=== PATIENT | male | born 1950 | race Caucasian/White ===

== ENCOUNTER 2021-05-18 09:49 | Emergency (ER) | payer MEDICARE, BC, SELFPAY ==
[2021-05-18 09:53] VITALS: BP 141/90; PULSE 63; RESP 14; TEMP 35.2; O2SAT 99; BMI 27.3
--- NOTE | 2021-05-18 10:42 | US_ITS ---
STUDY: SCROTUM ULTRASOUND REASON FOR EXAM: Male, 70 years old. Testicular Pain TECHNIQUE: Ultrasound evaluation of the scrotum was performed with color Doppler and static guevara-scale imaging. COMPARISON: None. FINDINGS: RIGHT TESTICLE INTRATESTICULAR: There is a normal size of the right testicle. The right testicle measures 5.1 x 3.4 x 2 .2 cm. There is a heterogeneous echotexture. There is normal arterial and normal venous vascularity. There are small tunica cysts at the periphery. There is hypoechoic region with probable cystic dilatation of the rete testes. EXTRATESTICULAR: The epididymis is normal in size. The epididymis head measures 1.1 cm. There is normal vascularity of the epididymis. There is no demonstrated epididymal cystic structure. There is a small hydrocele. There is no demonstrated varicocele. There is no demonstrated extratesticular mass or cyst. LEFT TESTICLE INTRATESTICULAR: There is a normal size of the left testicle. The left testicle measures 4.7 x 3.4 x 2.6 cm. There is a heterogeneous echotexture. There is normal arterial and normal venous vascularity. There are hypoechoic regions with probable cystic dilatation of the rete testes EXTRATESTICULAR: The epididymis is normal in size. The epididymis head measures 1.1 cm. There is normal vascularity of the epididymis. There is no demonstrated epididymal cystic structure. There is a small hydrocele. There are prominent extratesticular veins consistent with a varicocele. There is no demonstrated extratesticular mass or cyst. US/Testicular with Arterial Flow IMPRESSION: Probable cystic dilatation of the rete testes. Small tunica cysts on the right. Small hydroceles. Electronically Signed: Aravind Landin MD at 13:13 EST , Service support ,
--- NOTE | 2021-05-18 10:46 | EX.ED.GUMALE ---
HPI History of Present Illness Chief Complaint: Male Pain/Injury Narrative Narrative: Patient presents with right testicular pain for the last week. It is intermittent. He states he seems to be okay in the morning, but by the end of the day he has pain. He denies any fevers or chills. No nausea or vomiting. No true swelling of the area. No dysuria, hematuria, or penile discharge. 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 He has sharp stabbing pain that radiates upward. The pain is in the testicle itself. No back pain. No other symptoms. PFSH PFS Medical History no medical history Home Medications NK 05/18/21 [History Last Taken Unknown] Allergy/AdvReac Type Severity Reaction Status Date / Time No Known Allergies Allergy Verified 05/18/21 09:52 Social History Smoking Status: Never smoker ROS ROS ED ROS Narrative Constitutional: No fever, no chills. HEENT: No sore throat. No neck pain. No loss of vision. No rhinorrhea. Cardiovascular: No chest pain. No palpitations. No pedal edema. Respiratory: No cough, no shortness of breath. Abdominal: No abdominal pain. No nausea. No vomiting. Genitourinary: No dysuria. No hematuria. Right testicular pain. Musculoskeletal: No myalgias. No arthralgias. Neurologic: No headaches. No dizziness. No lightheadedness. Skin: No rash. No change in color. Psychiatric: No depression. No anxiety. EXAM Physical Exam Narrative Exam Narrative: Afebrile. Vital signs noted. HEENT: Normocephalic. Atraumatic. PERRL, EOMI. Neck soft and supple. No point tenderness or step off. Cardiovascular: Regular rate and rhythm. No murmurs, rubs, or gallops appreciated. Respiratory: No tachypnea. Lungs clear to auscultation bilaterally. Gastrointestinal: Abdomen soft, nontender, with normoactive bowel sounds. No rebound or guarding. Neurological: Awake. Alert. Nonfocal, nonlateralizing. Skin: No rash. Normal color. No pallor. Musculoskeletal: No pedal edema. Full range of motion extremities. Genitourinary: Chaperoned examination reveals mild tenderness in the right epididymal area. No fluctuance. No palpated hernia. Normal lie of testicles. Const Vital Signs: 05/18/21 09:53 05/18/21 13:23 Temperature 95.3 F L Temperature Source Temporal Pulse Rate 63 57 L Respiratory Rate 14 18 Blood Pressure 141/90 H 129/79 H Blood Pressure Mean 107 95 Pulse Ox 99 98 Oxygen Delivery Method Room Air Room Air MDM MDM MDM Narrative Medical decision making narrative: Patient is having more pain in the testicle itself. He may have more of a hydrocele or varicocele. Urine was sent for analysis and ultrasound was obtained of the testicles. Urinalysis shows no evidence of infection. The ultrasound of the testicles shows probable cystic dilation of the rete testes. Small tunica cysts on the right. Small hydroceles. Clinically, I see no evidence of hernia, and he does not have any signs of obstruction, no problems with bowel movements. At this point in time, I feel he can be discharged safely home with follow-up to his primary care physician. However, he states he does not have 1 currently, he was also referred to urology. Disposition is discharged home in stable condition. Lab Data Attestation: I reviewed the patient's lab results. Labs: Laboratory Results - last 24 hr 05/18/21 10:20 Urine Color Yellow Urine Clarity Clear Urine pH 6.0 Ur Specific Gilbert 1.025 Urine Protein Negative Urine Glucose (UA) Normal Urine Ketones Negative Urine Occult Blood 25 H Urine Nitrite Negative Urine Bilirubin Negative Urine Urobilinogen Normal Ur Leukocyte Esterase Negative Urine RBC 0 SEEN Urine WBC 0 SEEN Ur Squamous Epith Cells 0 SEEN Urine Bacteria 0 SEEN Urine Mucus 0 SEEN Radiography Diagnostic Testing: Clinical Impression(s) from Imaging Studies Testicular Ultrasound 05/18/21 10:42 IMPRESSION: Probable cystic dilatation of the rete testes. Small tunica cysts on the right. Small hydroceles. Electronically Signed: Aravind Landin MD at 13:13 EST , Service support , Discharge Plan Triage Chief Complaint: Male Pain/Injury ED Provider: Sudarshan Reno Dx/Rx/DC Orders Clinical Impression: Pain in testicle Instructions: ED Testicular Pain, Unclear Cause Prescriptions: No Action NK RF: 0 Primary Care Provider: Terrance Garduno NP Referrals: Low Villagomez MD [STAFF PHYSICIAN] - 05/22/21 Terrance Garduno NP, EQUIPMENT SERVICE ASSOCIATE-C [Primary Care Provider] - Disposition Disposition: Home, Self Care
[2021-05-18 11:30] LABS: Bacteria 0 SEEN /hpf (None Seen); Mucous, Urine 0 SEEN /hpf (<or=2+); Red Blood Cells-Urine 0 SEEN /hpf (0-5); Squamous Epithelial Cells - UA 0 SEEN /hpf (0-5); White Blood Cells 0 SEEN /hpf (0-5)
[2021-05-18 11:36] LABS: Color, Urine Yellow (Yellow); Glucose, Dipstick Normal (Normal); Ketone-Dipstick Negative (Negative); Leukocyte Esterase-Dipstick Negative /ul (Negative); Nitrite-Dipstick Negative (Negative); Occult Blood-Urine 25 /ul (Negative); Protein-Dipstick Negative (Negative); Specific Gravity, Urine 1.025 (1.002-1.030); Urine Bilirubin Dipstick Negative (Negative); Urine Clarity Clear (Clear); Urine Urobilinogen Normal (Normal)
[2021-05-18 13:23] VITALS: BP 129/79; PULSE 57; RESP 18; O2SAT 98
== END 2021-05-18 14:11 | disposition home or self-care (01) ==
PROVIDERS: Emergency Provider Emergency Medicine; PCP Nurse Practitioner Family
DX: N50.811 Right testicular pain (principal); N43.3 Hydrocele, unspecified
CPT/HCPCS: 76870; 81001; 93976; 99284; A4216

== ENCOUNTER 2021-05-20 22:15 | Emergency (ER) | payer MEDICARE, BC, SELFPAY ==
[2021-05-20 22:16] VITALS: BP 137/79; PULSE 65; RESP 16; TEMP 36.4; O2SAT 97; BMI 26.2
--- NOTE | 2021-05-20 23:19 | EDS_ITS ---
HPI HPI - GI History of Present Illness Chief Complaint: Abd Pain Detail of Chief Complaint: Right groin pain Informant: patient Abdominal Pain/Flank Pain Onset: Days Context: Gradual Onset Timing: Intermittent Quality: Dull Current Severity: Mild Maximum Severity: Mild Relieved by: Nothing Nausea/Vomiting/Emesis GI Symptom: Negative for Nausea and Vomiting Diarrhea/Melena/Hematochezia GI Symptom: Negative for Diarrhea, Melena and Hematochezia Associated Symptoms Associated Symptoms: Negative for Dysuria, Frequency, Hematuria and Urgency Narrative Narrative: 70-year-old male no seen past medical history no significant surgeries. He says the last 5 to 6 days and intermittent right groin pain. Worse with lifting. He denies any dysuria or hematuria. No fever. No vomiting or diarrhea. He was seen in emergency room several days ago had a urinalysis and testicular ultrasound which were unremarkable. Prior similar symptoms: No Recent Illness/Hospitalization: No PFSH PFSH Medical History no medical history no medical history Home Medications NK 05/18/21 [History Last Taken Unknown] Allergy/AdvReac Type Severity Reaction Status Date / Time No Known Allergies Allergy Verified 05/20/21 22:16 Surgical History no surgical history no surgical history Social History Smoking Status: Never smoker ROS ROS ED ROS Narrative Denies recent illness. Review of Systems ROS Unobtainable: Denies due to encephalopathy Constitutional Constitutional ED: Denies fever(s) ENT ENT ED: Denies ear pain Cardiovascular Cardiovascular: Denies chest pain Respiratory/Chest Respiratory/Chest: Denies dyspnea Gastrointestinal Gastrointestinal: Denies abdominal pain Genitourinary Genitourinary ED: Denies dysuria Musculoskeletal Musculoskeletal: Denies myalgias Integumentary Denies rash Neurologic Neurologic: Denies headache(s) Psychiatric Psychiatric: Denies depression Endocrine Endocrinology: Denies polyuria Hematologic/Lymphatic Hematologic/Lymphatic: Denies easy bruising Allergic/Immunologic Allergic/Immunologic ED: Denies urticaria EXAM Physical Exam Narrative Exam Narrative: 70-year-old male no acute distress exam normal except right inguinal hernia. His scrotum and testicles are nontender without masses. There is no swelling. He has an obvious hernia on the right when he bears down or coughs. He may have a small 1 on the left also. Neither is strangulated or incarcerated. Const Vital Signs: 05/20/21 22:16 Temperature 97.5 F L Temperature Source Temporal Pulse Rate 65 Respiratory Rate 16 Blood Pressure 137/79 H Blood Pressure Mean 98 Pulse Ox 97 Positive well nourished and well developed; Negative for obese, cachectic, contractures or unkempt General Appearance ED: well developed and NAD; Negative for unkempt, cachectic, contractures or pallor Nutritional Appearance: Negative for cachectic or obese HEENT Reports moist mucous membranes normocephalic and atraumatic Eyes PERRL and EOMs intact bilaterally General Eye ED: Negative for pale conjunctiva or scleral icterus Neck no lymphadenopathy, supple and no JVD General: Negative for tenderness Resp normal respiratory effort and clear to auscultation bilaterally Auscultation: Negative for rales, rhonchi, wheezes or diminished lung sounds Cardio regular rate, regular rhythm, S1 normal heart sound, S2 normal heart sound and no murmurs GI non-tender, non-distended and no masses GI Narrative: Right inguinal hernia. Sliding. Not incarcerated or strangulated. He may also have a small on the left. Inspection: Negative for abdominal distention Auscultation: normoactive bowel sounds; Negative for hypoactive bowel sounds Palpation: soft; Negative for tender, guarding or rigid Back/Spine no CVA tenderness General Back: Negative for CVA tenderness Extremity full ROM General Extremety ED: Negative for edema or tenderness General Extremity: Negative for edema Neuro moves all extremities Sensorium / Orientation: alert, oriented to person, oriented to place and oriented to time; Negative for confused, lethargic or stuporous Motor Exam: strength 5/5 throughout Psych mental status grossly normal and thought process normal Appearance: Negative for unkempt Mood & Affect: Negative for depressed or tearful Skin no wounds General Skin Exam: Negative for jaundice or pallor Lesions: no lesions Rashes: no rashes MDM MDM MDM Narrative Medical decision making narrative: 70-year-old male with a right inguinal hernia. Will be referred to general surgery for follow-up. We discussed things such as strangulation, incarceration or bowel obstruction again any no symptoms he should return. Discharge Plan Triage Chief Complaint: Abd Pain ED Provider: Arvind Massey Dx/Rx/DC Orders Clinical Impression: Hernia, inguinal, right Instructions: ED Hernia (Adult) Prescriptions: No Action NK RF: 0 Primary Care Provider: Terrance Garduno NP Referrals: Richmond Dacosta MD [STAFF PHYSICIAN] - As soon as possible Johnny Goff MD [STAFF PHYSICIAN] - As soon as possible Terrance Garduno NP, FIRE EXTINGUISHER SPRINKLER INSPECTOR-C [Primary Care Provider] - Activity Restrictions/Additional Instructions: You have a right groin hernia. Follow-up with a general surgeon and they can evaluate you for having that surgically repaired. Return if severe pain, vomiting abdominal distention or you notice a larger lump that will not reduce. Disposition Disposition: Home, Self Care
[2021-05-20 23:36] VITALS: BP 136/82; PULSE 65; RESP 15; O2SAT 99
== END 2021-05-20 23:37 | disposition home or self-care (01) ==
LOC: ED 23:30
PROVIDERS: Emergency Provider Emergency Medicine; PCP Nurse Practitioner Family
DX: K40.90 Unilateral inguinal hernia, without obstruction or gangrene, not specified as recurrent (principal)
CPT/HCPCS: 99282

== ENCOUNTER 2021-06-07 06:04 | Day surgery (SDC) | payer MEDICARE, BC, SELFPAY ==
--- NOTE | 2021-06-05 16:14 | EKG12_ITS ---
Test Reason : PREOP Blood Pressure : / mmHG Vent. Rate : 062 BPM Atrial Rate : 062 BPM P-R Int : 232 ms QRS Dur : 152 ms QT Int : 428 ms P-R-T Axes : 040 -47 -12 degrees QTc Int : 434 ms Sinus rhythm with 1st degree A-V block Right bundle branch block Left anterior fascicular block Bifascicular block Abnormal ECG Confirmed by ZACHERY REVELES, VINCENT ([id number]), editor managing newspaper MENDEL RESENDIZ ([id number]) on 06/06/2021 10:03:41 AM Referred By: Richmond Dacosta Confirmed By:VINCENT BINGHAM MD
[2021-06-05 17:09] LABS: Hematocrit 41.6 % (40-54); Mean Corp Hgb Conc 33.7 g/dL (32-36); Mean Corpuscular Hgb 31.3 pg (27.0-32.0); Mean Corpuscular Volume 93.1 fL (80-94); Mean Platelet Vol. 8.4 fl (6.2-12.0); Platelet Count 276 K/mm3 (150-450); RBC Distribution Width CV 11.9 % (11.6-14.6); RBC Distribution Width SD 41.1 fl (35.1-43.9); Red Blood Count 4.47 M/mm3 (4.6-6.2); White Blood Count 8.4 K/mm3 (4.4-11.0)
[2021-06-07] VITALS (9 sets, daily range): BP systolic 110–141; BP diastolic 68–87; PULSE 58–71; RESP 16–18; TEMP 36.1–37.1; O2SAT 92–100; BMI 26.7
[2021-06-07] MEDS: Lactated Ringers 1,000 ML 15 ML IV (06:40)
--- NOTE | 2021-06-07 07:21 | PCM.HP.BLA ---
History and Physical Date of Admission: 06/07/21 Intake Vital Signs 05/25/21 14:17 Height 6 ft 3 in Weight: 218 lb BMI 27.2 BP 143/64 H Blood Pressure Location Rt brachial Position Sitting Respiration 16 Intake Visit Reasons: R ING HERNIA/SEEN IN ER Chief Complaint: right groin pain Photographic Process Worker Required: No Is patient in pain?: Yes (right groin) Allergies No Known Allergies Allergy (Verified 05/25/21 14:18) Medications glucosamine HCl 500 mg tablet 500 mg PO DAILY 05/25/21 [History Confirmed 05/25/21] vitamin E 200 unit capsule 200 unit PO DAILY 05/25/21 [History Confirmed 05/25/21] [facility] Medical History Hernia, inguinal, right Pain in testicle Surgical History (Updated 05/25/21 @ 14:17 by Katrin Hand) History of surgical removal of pilonidal cyst Family History (Updated 05/25/21 @ 14:17 by Katrin Hand) Father Diabetes CVA (cerebral vascular accident) Social History (Updated 05/25/21 @ 14:17 by Katrin Hand) Smoking Status: Never smoker alcohol intake: never HPI HPI HPI: NHI SYLVESTER, is a 70 M who presents to the office today for right groin pain. The patient reports that he has been having bulging and pain in the right groin for the past several weeks. He reports no nausea or vomiting. He has no symptoms of the opposite side. ROS General General: No weight change, appetite, fatigue, colon cancer, breast cancer or weakness HEENT HEENT: No difficulty swallowing, eye injury, eye surgery, swollen glands or hoarseness Endo Endocrine: No thyroid disease, diabetes mellitus, thyroid cancer, Hair loss, heat intolerance or cold intolerance Skin Skin: No rash or changing moles Breast Breast: No left breast lump, right breast lump, nipple discharge, breast pain, abnormal mammogram, abnormal US or breast enlargement Musc Musculoskeletal: No back problems, arthritis, rheumatoid arthritis, gout or joint pain Cardio Cardiovascular: No murmur, pacemaker, heart disease, atrial fibrillation, high blood pressure, heart attack, heart stent, palpitations, shortness of breat with exertion or chest pain Psych Psychiatric: No depression, anxiety or hearing voices Resp Respiratory: No shortness of breath, Yes sleep apnea, No cough, No COPD, No asthma, No emphysema and No wheezing Gastro Gastrointestinal: No abdominal pain, No nausea or vomiting, No diarrhea, No constipation, No blood in stool, No acid reflux, No hemorrhoids, No ulcers, No gallbladder problem and No black,tarry stools Nelson Hematologic: No blood thinners, No blood disorders, No bleeding, No anemia and No blood clots Neuro Neurologic: No system reviewed and no additional complaints, except as documented, No as per HPI, No abnormal gait, No abnormal hearing, No abnormal movements, No abnormal speech, No behavioral changes, No burning sensations, No confusion, No convulsions, No disequilibrium, No dizziness, No localized weakness, No frequent falls, No headache(s), No lack of coordination, No loss of vision, No memory loss, No numbness, No other visual disturbances, No radicular pain, No restless legs, No sensory deficit, No syncope, No tingling, No tremor(s), No weakness and No other Exam Const General: cooperative Orientation: alert and oriented x3 [facility] Head: normal to inspection Neck Neck: normal visual inspection and full ROM Chest Chest palpation & inspection: normal inspection of the chest Resp Effort & Inspection: normal respiratory effort Auscultation: clear to auscultation bilaterally Cardio Rate: regular rate Rhythm: regular rhythm GI Inspection: non-distended Palpation: soft, hernia indirect inguinal on the right and nontender Skin General: no rashes or lesions noted Neuro General: patient alert and patient oriented x3 Extrem General: full ROM Psych Appearance: grossly normal Mental Status: mental status grossly normal Assessment and Plan Assessment and Plan (1) Hernia, inguinal, right: Status: Acute Plan - Dr. Richmond Dacosta MD: The patient has a right inguinal hernia. I discussed robotic assisted laparoscopic right inguinal hernia repair with mesh. I discussed the procedure in detail all the patient's questions were answered. I discussed risks associated with the procedure including but not limited to bleeding, infection, injury to other organs such as bowel, spermatic cord, bladder. Patient understands all the risks and is willing to proceed. I discussed mesh placement as well. I also discussed repairing the contralateral side if necessary if there is a hernia present and he would like it repaired if it is present. Richmond Dacosta MD Pager: [facility] [address] [place] [address], [address] [place] [address] Office: I have re-examined the patient. There are no clinical changes since date of exam.
--- NOTE | 2021-06-07 07:30 | LIP_PTH ---
PATIENT: NHI SYLVESTER [place] [facility] [id number] AGE/SX: 70/M ROOM: RE06/07/[address]: Dr. Richmond Dacosta MD : 1950 BED: DIS: 06/07/2021 SPEC #: [id number] RECD: 06/07/21 10:53 STATUS: JOY REZay #: [id number] KWABENA: 06/07/21 07:[address]: Richmond Dacosta DEPT: SURGICAL PATHOLOGY RECD BY: Judy Khan ENTERED: 06/07/21 11:09 SP TYPE: LIPOMA OTHR DR: CELESTINA Smith Tissues: Soft tissues, NOS Procedures: Surgery Specimen Level III HEADER OPERATION: Lap robotic inguinal hernia with mesh PRE-OP DIAGNOSIS: Right inguinal hernia TISSUE SUBMITTED: Lipoma of right cord MICROSCOPIC DIAGNOSIS Lipoma of right cord: Mature adipose tissue, consistent with lipoma with reactive changes. SJ:kay 06/11/2021 MICROSCOPIC DESCRIPTION Slides are reviewed. GROSS DESCRIPTION Received in fixative is one container labeled with the patient's name and designated lipoma of right cord. The specimen consists of multiple irregular fragments of lovelace-yellow fatty tissue that in aggregate measure 7 x 6 x 1 cm. Serial sections do not reveal mass lesions. Medical Device sections are submitted in two cassettes. / AM:kay 06/07/21 TC:1 CPT: 92307
[2021-06-07] MEDS: Bupivacaine Mpf 0.5% 30 ML VIAL (08:32)
--- NOTE | 2021-06-07 08:47 | PCM.OPRPT ---
Problems Associated Problem List Diagnoses (1) Hernia, inguinal, right: Report of Operation Date of Procedure: 06/07/21 Pre-Operative Diagnosis: Right inguinal hernia Post-Operative Diagnosis: Same Surgery/Procedure Performed:: Robotic assisted laparoscopic right inguinal hernia repair with mesh Specimen's removed: Lipoma of the right cord Description of Procedure: Patient was brought back to the operating room and general anesthesia was induced. The abdomen was prepped and draped in usual sterile fashion. An incision was made superior to the umbilicus and deepened the fascia which was elevated and a Veress needle was placed into the abdomen. Drop test was performed. The abdomen was then insufflated 15 mmHg and the Veress needle was removed. Camera port was placed through this midline incision and the abdomen was inspected and there were no injuries from entry. Patient was placed in Trendelenburg position and the inguinal regions were inspected and there appeared to be only a right inguinal hernia. Under direct visualization a right lateral and left lateral 8 mm port were placed. The robot was then docked. Using scissors with electrocautery an incision was made in the peritoneum in the right lower quadrant and dissection was carried inferiorly until the hernia sac was identified. A lipoma and the hernia sac were reduced. The lipoma was removed. Next ProGrip mesh was trimmed and placed in the right inguinal region and unfolded over the hernia. There is good coverage. The peritoneum was then reapproximated over this defect using a running 3 OV lock suture. There was complete coverage of the mesh after closure of the peritoneum. Next the robot was undocked and the abdomen was a lot of desufflate. The scrotum was checked and contain both testicles. The incisions were injected with local anesthetic and closed with interrupted 4-0 Monocryl suture as well as Steri-Strips and bandages. Patient was awoken and taken to PACU in stable condition and tolerated the procedure well. Grafts/Implants Used: ProGrip mesh in the right inguinal region Admit VTE Documentation VTE Mechan Device Prophylaxis: SCD's
--- NOTE | 2021-06-07 08:49 | DCINST_ITS ---
Discharge Instructions Procedure Hernia Diet Discharge Diet: Light diet - advance as tolerated Activity Discharge Activity: May Not Drive (for 2-3 days or while taking narcotic pain meds.) and May Shower (with the bandage in place 1-2 days after surgery.) Lifting Restrictions: 20 pounds for 4 weeks. Additional Activity Instructions:: Climbing stairs is fine, walking is encouraged. Sitting in bed may be uncomfortable. Sitting up using your lateral muscles (sitting up sideways) is usually more comfortable. Do not drive, work heavy equipment of sign legal documents for 24 hours. If your hernia repair was an ingunial repair, you may have scrotal swelling, an ice pack and/or athletic support can provide more comfort. Pain medications may cause nausea, you should typically eat light foods as you take your pain medications. Pain medications may also cause constipation. If you have difficulty with this, discuss with your doctor. Dressing / Incision Call your doctor if your incision/area has: Continuous Slow Oozing, Sudden Increased Bleeding, Increased Pain/ Swelling, Increased Redness and Foul Smelling Discharge Call your doctor if you observe: Fever of 101 or Higher Suture Line Care: Avoid Pulling/Pushing and Avoid Pinching/Bending Remove Dressing in: 2 days Cleanse incision/area with: Soap & Water Follow Up Care Please Follow Up With: Richmond Dacosta MD When: Please call to schedule 2 week follow up appointment. [phone] Test Results: Test results from this visit will be discussed in further detail at your follow-up appointment, if applicable. Discharge Plan Admission Attending Provider: Richmond Dacosta Primary Care Provider: Terrance Garduno NP Discharge Orders/Prescriptions Prescriptions: New oxycodone-acetaminophen [Percocet] 5-325 mg tablet 1 tab PO Q4H PRN (Reason: pain) 5 Days Qty: 10 RF: 0 No Action vitamin E 200 unit capsule 200 unit PO DAILY RF: 0 glucosamine HCl 500 mg tablet 500 mg PO DAILY RF: 0 ibuprofen 200 mg Tablet 400 mg PO Q8H PRN (Reason: Pain) RF: 0 Referrals / Follow Up: Terrance Garduno NP, VENDING ROUTE DRIVER-C [Primary Care Provider] - Disposition Disposition (needs filled in before D/C Order can be placed): Home, Self Care
[2021-06-07] MEDS: oxyCODONE 5 MG Tablet PO (10:07)
[2021-06-07] MEDS: Acetaminophen 325 MG Tablet PO (10:07)
[2021-06-07] MEDS: Tamsulosin HCl 0.4 MG Capsule 0.8 MG PO (14:30)
--- NOTE | 2021-06-07 16:19 | SUR.PHASEII ---
PATIENT STRAIGHT CATHED FOR [address] DORSEY[address]
== END 2021-06-07 16:27 | disposition home or self-care (01) ==
LOC: SDC 06:05 → AC 06:05
PROVIDERS: Anesthesiology; PCP Nurse Practitioner Family; Referring Provider Surgery; Visit Provider Surgery
PROC: (CPT 49650; principal; 2021-06-07 07:10)
DX: K40.90 Unilateral inguinal hernia, without obstruction or gangrene, not specified as recurrent (principal); I45.10 Unspecified right bundle-branch block; D17.6 Benign lipomatous neoplasm of spermatic cord
CPT/HCPCS: 00840; 49650; 55559; S2900; 36415; 85027; 88304; 93005; J7120; J2405

== ENCOUNTER → 2024-08-17 | Outpatient (CLI) | payer MEDICARE, OTHER, SELFPAY ==
[2024-08-17 12:24] LABS: Absolute Lymphocyte Count 1.09 X10^3/uL (0.83-4.51); Absolute Neutrophil Count 5.1 X10^3/uL (2.0-7.7); Basophil# 0.03 X10^3/uL; Basophil% 0.4 % (0-1); Eosinophil# 0.13 X10^3/uL; Eosinophils% 1.9 % (0-5); Hematocrit 43.8 % (40-54); Hemoglobin 14.6 g/dL (13.0-16.5); Lymphocyte # 1.09 X10^3/ul (0.83-4.51); Lymphocyte % 15.8 % (19-41); Mean Corp Hgb Conc 33.3 g/dL (32-36); Mean Platelet Vol. 8.6 fl (6.2-12.0); Monocyte# 0.57 X10^3/uL; Monocyte% 8.2 % (0-10); NRBC Flagged by Analyzer 0 % (0-5); Neutrophil # 5.07 X10^3/uL (2.7-7.7); Neutrophil % 73.4 % (47-70); Platelet Count 292 K/mm3 (150-450); RBC Distribution Width CV 12.1 % (11.6-14.6); RBC Distribution Width SD 41.8 fl (35.1-43.9); Red Blood Count 4.71 M/mm3 (4.6-6.2); White Blood Count 6.9 K/mm3 (4.4-11.0)
[2024-08-17 13:12] LABS: ALB/GLOB Ratio 1.3 RATIO (0.9-2.4); AST(SGOT) 17 U/L (<=37); Alanine Aminotransfer ALT/SGPT 14 U/L (<=46); Alkaline Phosphatase 59 U/L (40-129); Anion Gap 10 (5-15); BUN 25 mg/dL (4-19); BUN/Creat Ratio 22.6 RATIO (10-20); Calcium,Total 9.5 mg/dL (7.6-11.0); Carbon Dioxide 24.8 mmol/L (21.0-32.0); Chloride 104 mmol/L (98-108); Creatinine, Serum 1.09 mg/dL (0.70-1.20); EST Glomerular Filtration Rate 71 (>60); Globulin 3.1 g/dL (2.2-4.2); Glucose 99 mg/dL (70-99); Potassium 4.5 mmol/L (3.3-5.1); Protein, Total 7.1 g/dL (5.9-8.4); Sodium Level 138 mmol/L (133-145); Total Bilirubin 0.41 mg/dL (0.00-1.30)
[2024-08-17 14:19] LABS: Cholesterol 171 mg/dL (<=200); High Density Lipoprotein 53 mg/dL; Low Density Lipoprotein Calc. 106 mg/dL; Triglycerides 61 mg/dL; Very Low Density Lipoprotein 12 mg/dL (5-40); cholesterol:hdl ratio screen 3.21
== END | disposition home or self-care (01) ==
LOC: BIMLAB 09:16
PROVIDERS: PCP Internal Medicine; Visit Provider Internal Medicine
DX: Z00.00 Encounter for general adult medical examination without abnormal findings (principal); R07.89 Other chest pain
CPT/HCPCS: 36415; 80053; 80061; 85025

== ENCOUNTER → 2024-08-24 | Outpatient (CLI) | payer MEDICARE, SELFPAY ==
--- NOTE | 2024-08-24 13:37 | STRESSREP_ITS ---
Stress Test Report Date: 08/24/2024 Procedure: Exercise tolerance test/imaging study Indications: Chest tightness Consent: Per the patient Procedure: The patient exercised on a Adam protocol for 9 minutes achieving a peak heart rate of 130 bpm (89% predicted maximal heart rate) with a peak blood pressure 170/82 mmHg and a peak MET capacity of 10.1 METs. The baseline ECG demonstrated normal sinus rhythm, right bundle branch block. The peak exercise ECG demonstrated no significant ischemic changes. EKG during recovery revealed no significant ischemic changes [There were no cardiac dysrhythmias pretest, during exercise, or recovery]. The functional capacity was considered excellent for age. There was [no complaint of chest discomfort during exercise or recovery]. The examination was discontinued secondary to calf pain. Impression: 1. Technically adequate (percent predicted maximal heart rate greater than 85%) exercise tolerance test 2. Stress test is negative for exercise-induced EKG changes of ischemia 3. The test test is negative for exercise-induced chest pain 4. Functional capacity is excellent for age 5. Nuclear images pending Myocardial perfusion imaging study: Technique: The patient was injected with 14.1 mCi of technetium 99m Cardiolite and subsequently rest SPECT Cardiolite nuclear imaging was obtained in the horizontal long, vertical long, and short axis views. The patient exercised on a Adam protocol. Please see above for details. The patient was injected with 43.3 mCi of technetium 99m Cardiolite and subsequently stress SPECT Cardiolite nuclear imaging was obtained in the horizontal long, vertical long, and short axis views. A gated Cardiolite study at peak stress was obtained. Interpretation: Rest and stress SPECT Cardiolite nuclear imaging status post realignment, normalization, and attenuation correction, demonstrates no evidence of significant ischemia. There is a small fixed apical defect. The gated Cardiolite study demonstrates no significant regional wall motion abnormalities. The reported LVEF is 57%. Impression: 1. There is no evidence of significant ischemia. 2. The gated Cardiolite study reports an LVEF of 57%. This note was generated with [employer] software. It may contain incorrect words, spelling, and punctuation that were not noted in checking the note before signing.
== END | disposition home or self-care (01) ==
LOC: CVS 06:12
PROVIDERS: PCP Internal Medicine; Referring Provider Internal Medicine; Visit Provider Internal Medicine
DX: R07.89 Other chest pain (principal)
CPT/HCPCS: 78452; 93017; A9500; A4216